=== PATIENT | male | born 1980 | race Caucasian/White ===

== ENCOUNTER 2019-01-03 22:08 | Emergency (ER) | payer OTHER ==
[~2019-01-03] VITALS: Ht 177.8 cm; Wt 134.3 kg
[~2019-01-03 22:08] MED LIST: ASPI-COR81 M3 PO; FIORICET1 CAP PO; LISINOPRIL2.5 MG PO; PROZ20 PO
[2019-01-03 22:13] VITALS: Ht 177.8 cm; Wt 134.3 kg
[2019-01-04 00:24] LABS: BASOPHIL % 0.5 % (0-2); PLATELET COUNT 316 x10^3mcL (130-400)
[2019-01-04 02:29] LABS: CALCIUM 9.2 mg/dL (8.5-10.1); CARBON DIOXIDE 28.2 mmol/L (21-32); CHLORIDE SERUM 107 mmol/L (98-107); CREATININE SERUM 1.1 mg/dL (0.7-1.3); GFR1 > 60 mL/min; GLUCOSE SERUM 155 mg/dL (74-106); SODIUM SERUM 141 mmol/L (136-145)
[2019-01-04 02:33] LABS: ALBUMIN 3.8 g/dL (3.4-5.0); ALKALINE PHOSPHATASE 90 U/L (46-116); ALT/SGPT 68 U/L (16-63); AST/SGOT 37 U/L (15-37); BILIRUBIN TOTAL 0.56 mg/dL (0.20-1.00); TOTAL PROTEIN, SERUM 7.5 g/dL (6.4-8.2)
[2019-01-04 06:23] VITALS: BP 137/83
== END 2019-01-04 05:45 | disposition home or self-care (01) ==
LOC: ED 22:08
PROVIDERS: Emergency Medicine
DX: R07.89 Other chest pain (principal); M54.2 Cervicalgia; R07.81 Pleurodynia; R20.2 Paresthesia of skin; I10 Essential (primary) hypertension; G43.909 Migraine, unspecified, not intractable, without status migrainosus; E78.00 Pure hypercholesterolemia, unspecified; Z98.890 Other specified postprocedural states; Z88.8 Allergy status to other drugs, medicaments and biological substances; R06.02 Shortness of breath
CPT/HCPCS: 85378; J1200; J2270; J2405; J2920; Q0092; Q9967

== ENCOUNTER 2019-02-09 13:21 | Emergency (ER) | payer OTHER ==
[~2019-02-09] VITALS: Ht 177.8 cm; Wt 137.0 kg
[2019-02-09 13:34] VITALS: Ht 177.8 cm; Wt 137.0 kg
[2019-02-09 16:11] LABS: BASOPHIL % 0.3 % (0-2); PLATELET COUNT 311 x10^3mcL (130-400); RED CELL DISTRIBUTION WIDTH 13.1 % (11.5-14.5)
[2019-02-09 16:25] LABS: CALCIUM 8.6 mg/dL (8.5-10.1); CARBON DIOXIDE 25.9 mmol/L (21-32); CHLORIDE SERUM 106 mmol/L (98-107); CREATININE SERUM 1.1 mg/dL (0.7-1.3); GFR1 > 60 mL/min; GLUCOSE SERUM 123 mg/dL (74-106); POTASSIUM SERUM 4.3 mmol/L (3.5-5.1); SODIUM SERUM 141 mmol/L (136-145)
[2019-02-09 16:29] LABS: ALBUMIN 3.8 g/dL (3.4-5.0); ALKALINE PHOSPHATASE 79 U/L (46-116); ALT/SGPT 66 U/L (16-63); AST/SGOT 29 U/L (15-37); BILIRUBIN TOTAL 0.4 mg/dL (0.20-1.00); LIPASE 355 IU/L (73-393); TOTAL PROTEIN, SERUM 7.5 g/dL (6.4-8.2)
[2019-02-09 19:11] VITALS: BP 137/88
== END 2019-02-09 19:11 | disposition home or self-care (01) ==
LOC: ED 13:21
PROVIDERS: Emergency Medicine
DX: M54.5 Low back pain (principal); N34.2 Other urethritis; I10 Essential (primary) hypertension; E78.00 Pure hypercholesterolemia, unspecified; G43.909 Migraine, unspecified, not intractable, without status migrainosus; Z88.8 Allergy status to other drugs, medicaments and biological substances
CPT/HCPCS: 87491; 87591; J2270; J2405; J3010

== ENCOUNTER 2019-03-04 04:30 | Emergency (ER) | payer OTHER ==
[~2019-03-04] VITALS: Ht 177.8 cm; Wt 136.5 kg
[2019-03-04 05:33] LABS: CALCIUM 9.8 mg/dL (8.5-10.1); CARBON DIOXIDE 29.1 mmol/L (21-32); CHLORIDE SERUM 98 mmol/L (98-107); CREATININE SERUM 1.2 mg/dL (0.7-1.3); GFR1 > 60 mL/min; GLUCOSE SERUM 155 mg/dL (74-106); POTASSIUM SERUM 3.4 mmol/L (3.5-5.1); SODIUM SERUM 128 mmol/L (136-145)
[2019-03-04 05:38] LABS: ALKALINE PHOSPHATASE 65 U/L (46-116); ALT/SGPT 68 U/L (16-63); AST/SGOT 38 U/L (15-37); BILIRUBIN TOTAL 0.81 mg/dL (0.20-1.00); LIPASE 191 IU/L (73-393); TOTAL PROTEIN, SERUM 7.5 g/dL (6.4-8.2)
[2019-03-04 05:46] LABS: BASOPHIL % 0.4 % (0-2); PLATELET COUNT 251 x10^3mcL (130-400); RED CELL DISTRIBUTION WIDTH 13.2 % (11.5-14.5)
[2019-03-04 07:19] VITALS: BP 158/86
[2019-03-04 07:21] LABS: microscopic required? YES; urine erythrocyte NEGATIVE (NEGATIVE)
== END 2019-03-04 07:19 | disposition home or self-care (01) ==
LOC: ED 04:30
PROVIDERS: Emergency Medicine
DX: R10.12 Left upper quadrant pain (principal); I10 Essential (primary) hypertension; G89.29 Other chronic pain; E78.00 Pure hypercholesterolemia, unspecified; G43.909 Migraine, unspecified, not intractable, without status migrainosus; Z88.8 Allergy status to other drugs, medicaments and biological substances
CPT/HCPCS: J0500; J2270; J2405; J7030

== ENCOUNTER 2019-07-12 14:06 | Emergency (ER) | payer OTHER ==
[~2019-07-12] VITALS: Ht 177.8 cm; Wt 134.3 kg
[2019-07-12 14:32] VITALS: Ht 177.8 cm; Wt 134.3 kg
[2019-07-12 17:01] VITALS: BP 137/91
== END 2019-07-12 17:11 | disposition home or self-care (01) ==
LOC: ED 14:06
DX: M54.42 Lumbago with sciatica, left side (principal); I10 Essential (primary) hypertension; E78.00 Pure hypercholesterolemia, unspecified; G43.909 Migraine, unspecified, not intractable, without status migrainosus; Z98.890 Other specified postprocedural states; Z88.8 Allergy status to other drugs, medicaments and biological substances
CPT/HCPCS: J2270; J2405; J3010; J3490

== ENCOUNTER 2020-02-13 18:51 | Emergency (ER) | payer OTHER ==
[~2020-02-13] VITALS: Ht 177.8 cm; Wt 126.1 kg
[2020-02-13 19:00] VITALS: Ht 177.8 cm; Wt 126.1 kg
[2020-02-13 20:56] LABS: UA SPECIFIC GRAVITY 1.025 (1.005-1.035); microscopic required? YES; urine erythrocyte 1+ (NEGATIVE)
[2020-02-13 21:38] LABS: BASOPHIL % 0.3 % (0-2); PLATELET COUNT 275 x10^3mcL (130-400); RED CELL DISTRIBUTION WIDTH 12.4 % (11.5-14.5)
[2020-02-13 21:44] LABS: CALCIUM 9.4 mg/dL (8.5-10.1); CARBON DIOXIDE 25.5 mmol/L (21-32); CHLORIDE SERUM 101 mmol/L (98-107); CREATININE SERUM 0.9 mg/dL (0.7-1.3); GFR1 > 60 mL/min; GLUCOSE SERUM 212 mg/dL (74-106); POTASSIUM SERUM 3.8 mmol/L (3.5-5.1); SODIUM SERUM 138 mmol/L (136-145)
[2020-02-13 21:48] LABS: ALBUMIN 3.9 g/dL (3.4-5.0); ALKALINE PHOSPHATASE 102 U/L (46-116); BILIRUBIN TOTAL 0.5 mg/dL (0.20-1.00); LIPASE 350 IU/L (73-393); TOTAL PROTEIN, SERUM 7.5 g/dL (6.4-8.2)
[2020-02-13 22:12] LABS: ALT/SGPT 72 U/L (16-63); AST/SGOT 70 U/L (15-37)
[2020-02-13 23:10] VITALS: BP 131/99
== END 2020-02-13 23:10 | disposition home or self-care (01) ==
LOC: ED 18:51
PROVIDERS: Emergency Medicine
DX: K42.9 Umbilical hernia without obstruction or gangrene (principal); R10.9 Unspecified abdominal pain; E78.00 Pure hypercholesterolemia, unspecified; G47.00 Insomnia, unspecified; I10 Essential (primary) hypertension; Z98.890 Other specified postprocedural states; Z88.8 Allergy status to other drugs, medicaments and biological substances
CPT/HCPCS: J1885; J7030